=== PATIENT | female | born 2005 | race Caucasian/White ===

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

== ENCOUNTER 2024-09-25 23:45 | Emergency (ER) | payer SELFPAY ==
[2024-09-26] MEDS: Ketorolac 30 MG/ML SDV IM ONE (00:17)
[2024-09-26] MEDS: diphenhydrAMINE 50 MG/ML SDV IM ONE (00:18)
== END 2024-09-26 00:45 | disposition home or self-care (01) ==
LOC: VM.ED 23:45
DX: G43.909 Migraine, unspecified, not intractable, without status migrainosus (principal); Z79.84 Long term (current) use of oral hypoglycemic drugs
CPT/HCPCS: 96372; 99283; J1200; J1885; J3230